=== PATIENT | female | born 1960 | race Caucasian/White ===

== ENCOUNTER 2018-12-04 11:54 | Emergency (ER) | payer MEDICARE ==
[2018-12-04] MEDS ORDERED: Lidocaine 1% PF 5 ML VIAL ONE (12:04)
[2018-12-04] MEDS ORDERED: Adacel (T-DAP) 0.5 ML SYRINGE ONE (12:25)
--- NOTE | 2018-12-04 12:25 | RAD ---
Right foot 3 views HISTORY: Right foot injury. FINDINGS: Lisfranc joint alignment is anatomic. Plantar arch is maintained. Achilles and plantar enth esophytes at the inferior aspect of the calcaneus. Degenerative changes throughout the foot. 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 No acute fractur e or dislocation are apparent. IMPRESSION: Degenerative changes and other chronic-type findings. No acute osseous abnormalities are demonstrated.
[2018-12-04] MEDS ORDERED: Bacitracin Zinc 1 Packet ONE (12:32)
== END 2018-12-04 12:38 | disposition home or self-care (01) ==
LOC: SCSER 11:54
DX: S41.111A Laceration without foreign body of right upper arm, initial encounter (principal); L03.115 Cellulitis of right lower limb; E03.9 Hypothyroidism, unspecified; E78.5 Hyperlipidemia, unspecified; I10 Essential (primary) hypertension; F32.9 Major depressive disorder, single episode, unspecified; Z79.82 Long term (current) use of aspirin; Z79.899 Other long term (current) drug therapy; W26.8XXA Contact with other sharp object(s), not elsewhere classified, initial encounter
CPT/HCPCS: 12001; 90471; 90715; J2001